=== PATIENT | male | born 1985 | race Caucasian/White ===

== ENCOUNTER 2019-09-03 08:44 | Outpatient (RCR) | payer OTHER ==
[2019-09-03 10:06] LABS: SEMEN VOLUME 1.9 ML (1.5-5.0)
== END 2019-12-02 | disposition home or self-care (01) ==
LOC: LAB 08:44
PROVIDERS: ATTEND Urology
DX: N46.9 Male infertility, unspecified (principal)
CPT/HCPCS: 89320